=== PATIENT | female | born 1980 | race Caucasian/White ===

== ENCOUNTER 2016-10-17 12:12 | Emergency (ER) | payer OTHER ==
[~2016-10-17] VITALS: Ht 154.9 cm; Wt 61.8 kg
[2016-10-17] MEDS ORDERED: 0.9% Sodium Chloride 1,000 ML IV ONE (12:15)
[2016-10-17 12:16] VITALS: BP 102/62; PULSE 65; RESP 15; O2SAT 99
[2016-10-17 12:30] LABS: BASOPHILS % (AUTO) 0.3 % (0-3); MONOCYTES % (AUTO) 9.6 % (4-12); Mean Corpuscular Hemoglobin 29.6 pg (27.0-35.0); Mean Corpuscular Volume 87.9 fL (81-100); NEUTROPHILS % (AUTO) 63.7 % (40-74); Platelet Count 249 bil/L (150-400)
--- NOTE | 2016-10-17 13:02 | DRSVH ---
PROCEDURE: X-RAY CHEST, TWO VIEWS ([id number]) INDICATIONS: chest pain, dyspnea TECHNIQUE: 2 views of the chest were acquired. COMPARISON: None. FINDINGS: Surgical changes and devices: None. Lungs and pleura: No pleural effusions or pneumothorax. Lungs are clear. Mediastinum: Mediastinal contours are normal. Heart size is normal. Bones and chest wall: No suspicious bony abnormalities. Soft tissues appear unremarkable. IMPRESSION: 1. No acute cardiopulmonary disease. Dictated by: Nma Cox M.D. on 10/17/2016 at 13:00 Approved by: Nam Cox M.D. on 10/17/2016 at 13:00
[2016-10-17 13:13] VITALS: BP 93/61; PULSE 65; RESP 16; O2SAT 100
[2016-10-17 13:14] LABS: TROPONIN T < 0.010 ug/L (0.0-0.011)
[2016-10-17 13:30] LABS: APPEARANCE,URINE HAZY (CLEAR,HAZY); COLOR,URINE STRAW (YELLOW)
[2016-10-17 13:31] LABS: OCCULT BLOOD,URINE NEGATIVE (NEGATIVE); PH,URINE 7.5 (5.0-8.0); UROBILINOGEN,URINE NORMAL (NORMAL)
--- NOTE | 2016-10-17 14:24 | ED.REPORT ---
HPI-General Illness Date of Service Oct 17, 2016 ED Provider: Jayden Lynn MD A 36 year old female with a history of diabetes on insulin pump and sinus surgery on 09/12/2016 is brought to the ED from the [facility] via EMS due to intermittent chest pain. The pain is described as "sharp" and concentrated on the left side of her chest, radiating into her left shoulder. The pt was seen in the clinic to address possible UTI symptoms including vaginal discharge, dysuria and urinary frequency, and mentioned that she has been experiencing this chest pain for one week. This was accompanied by a cough and shortness of breath when she laid flat today. She was given nitro, aspirin and fentanyl en route, which relieved her pain somewhat from an 8/10 to her current pain of 6/ 10. The pt is concerned that she may have an infection from her recent surgery or have heartburn. The pt has treated her pain with Tylenol and Tums. She is not taking hormonal therapy or contraceptives. The pt denies lower extremity edema or hemoptysis. No other acute complaints at this time. She says that she' s been getting treated for her vaginal discharge, thought to be a 'yeast infection' and not different today. No recent hx of fever, chills, nausea, vomiting, unilateral weakness, palpitations, vision changes, or other pertinent complaints at this time. Nursing Notes Stated Complaint: CHEST PAIN Chief Complaint: Chest Pain Nursing Notes Reviewed: Yes Allergies: Coded Allergies: No Known Allergies (Verified , 07/26/03) Scheduled Ciprofloxacin (Cipro) 250 Mg Tablet 250 MG PO TID General Time Seen by MD: 12:15 Chief Complaint Chest pain Hx Obtained From: Patient, EMS Arrived By: Ambulance Sudden in Onset?: No Onset Occurred: 1 week ago Symptom Duration: Since onset Location: : Chest Quality: Sharp Radiation: : Shoulder (left) Severity: Current: Pain level 6 out of 10 Severity: Maximum: Pain level 8 out of 10 Recent Healthcare: No recent hospitalization, Recent doctor visit Similar Sx Previous: No Past Medical History Past Medical History Reports: Diabetes mellitus Past Surgical History thyroglossal duct cyst sinus surgery Family History MA (father at 50 and grandmother) Smoking History Never Smoker Social History Other Social History: Good social support Ambulatory Status Independent Review of Systems denies lower extremity edema denies hemoptysis Full Review of Systems Constitutional: Denies: Fever Eyes: Denies: Diplopia Ears / Nose / Throat: Denies: Mouth pain, Nasal congestion, Voice change Respiratory: Reports: Non-productive cough, Shortness of breath Cardiovascular: Reports: Chest pain GI: Reports: Abdominal pain (lower, over her bladder), Denies: Vomiting Musculoskeletal: Denies: Back pain, Neck pain Hematologic: Denies Bruising Endocrine: Denies: Cold intolerance, Heat intolerance Skin: Denies Rash Allergy / Immune: Denies: Sneezing Neurologic: Denies: Change LOC, Confusion, Headache, Seizure Complete sys rev & neg: except as marked. Physical Exam Constitutional: Well-developed, well-nourished. Not diaphoretic. Head: Normocephalic and atraumatic. Mouth/Throat: Oropharynx is clear and moist. No oropharyngeal exudate. Eyes: EOM are normal. Pupils are equal, round, and reactive to light. Neck: Supple, no tracheal deviation. Cardiovascular: Normal rate, regular rhythm. Equal and intact distal pulses throughout. No murmurs, rubs, or gallops. Pulmonary/Chest: Effort normal and breath sounds normal. No respiratory distress. Marked reproducible chest wall tenderness on the left that she states is the pain she's been having and concerned about. Abdominal: Soft. No distension. Mild suprapubic tenderness, but otherwise no tenderness, rebound, or guarding. Bowel sounds present. Musculoskeletal: Range of motion grossly intact, moving all extremities. No edema or tenderness appreciated. Neurological: AOx3. Grossly nonfocal exam. Strength and sensation intact and equal to bilateral upper and lower extremities. Skin: Warm and dry, no rashes or pallor appreciated. Psychiatric: Appropriate mood and affect. Behavior appears normal. Vital Signs Vital Signs Date Time Temp Pulse Resp B/P Pulse Ox O2 Delivery O2 Flow Rate FiO2 10/17/16 18:44 36.6 78 16 107/46 99 Room Air 10/17/16 18:43 78 16 107/46 99 Room Air 10/17/16 15:41 77 22 98/58 99 Room Air 10/17/16 13:13 65 16 93/61 100 10/17/16 12:16 36.6 65 15 102/62 99 Room Air Initial VS: Reviewed Interpretation & Diagnostics Lab Results Interpretation Result Diagram: 10/17/16 1221 10/17/16 1221 Test 10/17/16 12:21 10/17/16 12:45 White Blood Count 6.8th/mm3 (3.8-10.1) Red Blood Count 4.06mil/mm3 (3.90-5.20) Hemoglobin 12.0g/dL (12.0-15.6) Hematocrit 35.7% (35.0-46.0) Mean Corpuscular Volume 87.9fL (81-100) Mean Corpuscular Hemoglobin 29.6pg (27.0-35.0) Mean Corpuscular Hemoglobin Concent 33.6% (32.0-37.0) Red Cell Distribution Width 13.0% (12.3-15.4) Platelet Count 249bil/L (150-400) Neutrophils (%) (Auto) 63.7% (40-74) Lymphocytes (%) (Auto) 25.3% (14-46) Monocytes (%) (Auto) 9.6% (4-12) Eosinophils (%) (Auto) 1.0% (0-5) Basophils (%) (Auto) 0.3% (0-3) Prothrombin Time 10.7sec (8.1-12.5) Prothromb Time International Ratio 1.00ratio Sodium Level 138mEq/L (134-144) Potassium Level 3.9mEq/L (3.5-5.2) Chloride Level 102mEq/L (97-108) Carbon Dioxide Level 23mmol/L (18-29) Blood Urea Nitrogen 13mg/dL (6-20) Creatinine 0.58mg/dL (0.57-1.00) Estimat Glomerular Filtration Rate 168mL/min (>59) Glucose Level 160mg/dL (60-99) Calcium Level 9.2mg/dL (8.5-10.1) Magnesium Level 2.0mg/dL (1.6-2.6) Total Bilirubin 1.2mg/dL (0.0-1.2) Aspartate Amino Transf (AST/SGOT) 21U/L (0-50) Alanine Aminotransferase (ALT/SGPT) 12U/L (0-32) Alkaline Phosphatase 50U/L (25-150) Troponin T < 0.010ug/L (0.0-0.011) Total Protein 7.7g/dL (6.4-8.4) Albumin 4.1g/dL (3.4-5.0) Urine Color Straw (YELLOW) Urine Appearance Hazy (CLEAR,HAZY) Urine pH 7.5 (5.0-8.0) Urine Specific [place] 1.010 (1.003-1.035) Urine Protein Negativemg/dL (NEG,TRACE) Urine Glucose (UA) Negativemg/dL (NEGATIVE) Urine Ketones Negativemg/dL (NEGATIVE) Urine Occult Blood Negative (NEGATIVE) Urine Nitrite Negative (NEGATIVE) Urine Bilirubin Negative (NEGATIVE) Urine Urobilinogen Normalmg/dL (NORMAL) Urine Leukocyte Esterase Small (NEGATIVE) Urine RBC 0-2/hpf (0-2) Urine WBC 0-5/hpf (0-5) Urine Epithelial Cells Occasional/hpf (NONE-MOD) Urine Crystals None seen (NONE SEEN) Urine Bacteria Few/hpf (NONE-FEW) Urine Hyaline Casts None/lpf (NONE) Urine Granular Casts None seen (NONE SEEN) Urine Waxy Casts None seen (NONE SEEN) Urine Red Blood Cell Casts None seen (NONE SEEN) Urine White Blood Cell Casts None seen (NONE SEEN) Urine Mucus None seen (None Seen) Urine Trichomonas None seen (NONE SEEN) Urine Yeast None (NONE SEEN) Urinalysis Comment None Urine Culture Reflexed Indicated ECG Interpretation ECG Interpretation: normal sinus rhythm with a rate of 69 low voltage, precordial leads Time: 12:29 Interpreted by: ED physician X-Ray Chest Interpretation Chest Xray Interpretation: IMPRESSION: 1. No acute cardiopulmonary disease. Dictated by: Nam Cox M.D. on 10/17/2016 at 13:00 Approved by: Nam Cox M.D. on 10/17/2016 at 13:00 Interpretation / Wet Read by: Interpret - Radiologist Re-Eval/Medical Decision Med Decision/Clinical Course In summary, 36-year-old female presenting to the ED for evaluation of a number of different complaints, most notably left-sided chest pain over the past week. Differential is broad and includes ACS, PE, aortic dissection, cardiac tamponade, pneumothorax. ACS seems unlikely; HEART score of 1 (hx of DM and family hx of CAD), but not all that consistent with her story and has clearly reproducible pain on exam. EKG demonstrates sinus rhythm with no acute ischemic changes appreciated. Doubt PE given the patient is PERC negative and very low clinical suspicion. Aortic dissection seems unlikely given the reproducible pain, pain not described as tearing through to her back, normal neurologic exam, no wide mediastinum on chest x-ray. No muffled heart sounds or JVD. Her EKG does not demonstrate any VT depression or diffuse ST elevation that would suggest myocarditis/pericarditis. No evidence of pneumothorax on x- ray or exam. Vital signs here in the ED also grossly within normal limits; blood pressures were on the lower side upon arrival, however had received nitroglycerin and fentanyl just prior. No lightheadedness. Not tachycardic. Laboratory results reviewed, notable for a white blood cell count of 6.8 with no left shift, coags, CMP and CBC grossly within normal limits. Urinalysis demonstrates a small amount of leukocyte esterase, however no white blood cells and only a few bacteria. She has been previously told that she has a urinary tract infection and is experiencing some dysuria and suprapubic tenderness; told that she would receive treatment for this here today previously. I will start her on a three-day course of Cipro, however discussed that she will need to discuss this with her primary doctor as I know that this has been something that she has been battling regularly and there was some thought that this may be continuing to her yeast infection. Chest x-ray negative for any acute abnormality. There was some concern that she had voiced to me, and had previously been discussed by me with her PA prior to her arrival about a possible systemic infection related to the surgery that she had over a month ago and the pain she is having. She has no leukocytosis, no fever or history of fever, no left shift , no murmurs on exam, no history of IV drug abuse, not immunocompromised, and clearly reproducible chest pain that she states is the same pain she has been having previously. I discussed the lack of risk factors for endocarditis with the patient at length, as well as with her PA on the phone prior to her sending the patient to the ED. Given the above, I explained that I do not think that she needs admission for a formal transthoracic or transesophageal echocardiogram and broad-spectrum antibiotics. I did do a brief, focused bedside echocardiogram and saw no signs of pericardial effusion or obvious vegetations, however I explained that I did not think I would be able to see vegetations there even if present. We discussed performing a formal echo but the patient expressed a desire to leave. She had received toradol and a gi cocktail with marked improvement in symptoms, even moreso that with the fentanyl. Given the reassuring findings above, it seems reasonable to discharge her home with very careful return precautions, PCP follow-up tomorrow. She verbalized agreement with this plan, no further questions. Time of Eval: 18:11 Patient Status: Condition improved Re-Evaluation/Progress Note: Pt rechecked and bedside echocardiogram is performed without complication. The diagnosis and plan for discharge are discussed. The pt understands and agrees with the plan. All questions are addressed at this time. Counseled Regarding: Diagnosis, Lab results, Need for follow-up, When/why to return to ED Discharge & Departure Primary Impression: Chest wall pain Additional Impressions: Dyspnea Dyspnea type: unspecified Qualified Code: R06.00 - Dyspnea, unspecified Chest pain Chest pain type: unspecified Qualified Code: R07.9 - Chest pain, unspecified Urinary tract infection Urinary tract infection type: site unspecified Hematuria presence: without hematuria Qualified Code: N39.0 - Urinary tract infection, site not specified Disposition: Home Discharge Condition All VS Reviewed: Yes Condition: Improved Patient Instructions: Chest Pain (ED), Costochondritis (ED), Shortness of Breath (ED) Additional Instructions: Thank you for allowing us to be a part of your care today. As we discussed, I think the likelihoood of you having a systemic (whole body) infection such as those that would lead to an infection of your heart is low at this point in time. Your lab work was reassuring, as were your vital signs. However, also as discussed, I cannot completely rule out that you are in the very early stages of an infection at this time. You need to watch for signs of fever, tachycardia (fast heart rate), changes in your pain, malaise, or if there is anything else of concern to you. In addition, we talked about the causes of chest pain and shortness of breath. Your family history of heart disease puts you at an increased risk of heart disease, and you should discuss a stress test with your regular doctor. Your EKG and blood work for this today was also reassuring. The fact that you're having the same pain you're describing when your chest is pressed on suggests a likely musculoskeletal cause for that pain, but again watch for worsening pain, a change in the character of your pain, weakness, headache, or anything else of concern to you. Call your primary care physician tomorrow to arrange a follow up appointment. Return to the emergency department if you develop any new or worsening symptoms including a marked change in your symptoms such as worsening chest pain, fever, vomiting, shortness of breath, or if there's anything else of concern to you. Referrals: Michelle Anderson MD (PCP) Scribe Attestation Portions of this note were transcribed by Bernard Teixeira. I, Dr. Lynn personally performed the history, physical exam and medical decision-making; I reviewed and confirmed the accuracy of the information in the transcribed note. copies to: Michelle Anderson MD Risk Factors PERC Rule PERC Result: All PERC criteria "No", PERC rule satisfied Jayden Lynn MD Oct 17, 2016 14:23 BERNARD TEIXEIRA Oct 17, 2016 14:26
[2016-10-17 15:41] VITALS: BP 98/58; PULSE 77; RESP 22; O2SAT 99
[2016-10-17] MEDS: LidocaineVisc 2%:Antacid 1:1 10 mL Syringe PO SCH ×2 (17:59→18:03)
[2016-10-17] MEDS ORDERED: CIPR-232 PO (18:36)
[2016-10-17 18:43] VITALS: BP 107/46; PULSE 78; RESP 16; O2SAT 99
[2016-10-17 18:44] VITALS: BP 107/46; PULSE 78; RESP 16; O2SAT 99
== END 2016-10-17 18:46 | disposition home or self-care (01) ==
LOC: SED 12:12
DX: R07.89 Other chest pain (principal); R06.00 Dyspnea, unspecified; N39.0 Urinary tract infection, site not specified; E11.9 Type 2 diabetes mellitus without complications; Z79.4 Long term (current) use of insulin
CPT/HCPCS: 36415; 71020; 80053; 81000; 81025; 83735; 84484; 85025; 85610; 87086; 87088; 93005; 96361; 96374; 99285; J1885; J7030

== ENCOUNTER 2016-10-25 22:44 | Observation (INO) | payer OTHER ==
[~2016-10-25] VITALS: Ht 154.9 cm; Wt 63.2 kg
[~2016-10-25 22:44] MED LIST: CIPR-232 PO
[2016-10-26] VITALS (11 sets, daily range): BP systolic 90–119; BP diastolic 52–77; PULSE 60–95; RESP 16–20; O2SAT 92–100
[2016-10-26] MEDS ORDERED: Pepcid PO (02:28)
[2016-10-26] MEDS ORDERED: Humalog SUBQ (02:28)
[2016-10-26] MEDS ORDERED: Polyethylene Glycol (PEG) 17 Gm Powder PO PRN (03:15)
[2016-10-26] MEDS ORDERED: Ondansetron 2 mg/mL 2 mL Inj IVPUSH PRN (03:15)
[2016-10-26] MEDS ORDERED: Alum-Mag Hydrox-Simeth 30 mL Suspension PO PRN (03:15)
[2016-10-26 05:22] LABS: BASOPHILS % (AUTO) 0.4 % (0-3); EOSINOPHILS % (AUTO) 2.3 % (0-5); Mean Corpuscular Hemoglobin 29.1 pg (27.0-35.0); Mean Corpuscular Volume 87.8 fL (81-100); NEUTROPHILS % (AUTO) 46.8 % (40-74); Platelet Count 223 bil/L (150-400)
--- NOTE | 2016-10-26 05:36 | PCM.HPMED ---
Subjective Date of Service Oct 26, 2016 Primary Provider: Admitting Physician: Sheila Britton DO Primary Care Physician: Michelle Anderson MD Attending Physician: Sheila Britton DO Admit Status: Direct Admit (From [facility]) Chief Complaint: Shortness of Breath History of Present Illness: Payton Rojas is a 36-year-old female with a past medical history of type 1 diabetes with insulin pump and recent sinus surgery who is a direct from [facility] with worsening shortness of breath. She says that since her dental procedure to correct for a hole in her sinus and infected tooth in late August, she has had decreased energy, felt tired, and short of breath constantly. She feels as though she is never able to get enough air. Her recovery from her procedure was complicated by an infection for which she required 3 rounds of antibiotics, which she cannot recall the names of. Since about two weeks ago, her shortness of breath has progressively become worse to the point where she even feels short of breath while talking. Around the same time, she also began to have chest pain that is worse when laying down. She also began to have heart palpitations that worsen with activity and a non-productive cough. Since yesterday, she had chills and had a temperature of 99.2 at urgent care today. On her visit with her PCP yesterday, her temperature was 99.2F. She says that she began to feel nauseous today. She denies vomiting, sore throat, tender lymphadenopathy. She has tried ibuprofen and Pepcid for her chest pain, but they have not helped. She denies abdominal pain, constipation, diarrhea, recent skin infections, or rashes. She had a recent urinary tract infection, with dysuria and urinary frequency, and completed a 3-day course of antibiotics on . These symptoms have since resolved. Per [facility] notes from 10/25/16, during a 75 meter walk in their ED, she had 2 episodes of hypoxia, once in the low 60s and once in the 70s. During this time, the patient complained of lightheadedness, air hunger, and burning sensation in her calves as if Im hiking. The patient reports that she normally has excellent exercise tolerance. In the ED at [facility], she was afebrile and had stable vital signs. Her oxygen saturation was 95% on room air. Initial labs from [facility] ED showed hypokalemia 3.1, hypoglycemia 58. Other labs were sodium 138, chloride 104, BUN/ creatinine 11/0.82, calcium 9.0. She had negative troponins x2, d-dimer, BNP, and normal lactate of 1.9. Her WBC count was 8.2, RBC 3.84, hgb/hct was 11.5/ 33.4, platelets 277. Her B-hCG was negative. Her urinalysis did not show signs of infection, but had glucose 100 mg/dL and 3-5 RBC/hpf. A chest CT angiogram showed no evidence of pulmonary embolism and a chest x-ray showed no radiographic abnormalities of the chest. It should be noted that she had several episodes of hypoglycemia with blood sugars of 44 and 58 also seen at [facility] with no time reported. [facility] was unable to do an echocardiogram over the weekend and so spoke with cardiology here at [facility] and requested a transfer to resume further care. Review of Systems: A comprehensive review of systems was conducted with the patient and found to be negative except as above in the History of Present Illness. Allergies Coded Allergies: No Known Allergies (Verified , 07/26/03) Home Medications Insulin Pump PMH Diabetes Type 1 Surgical History Thyroglossal duct cyst Sinus Surgery Family History Father: from Heart attack age 50 Brother: Diabetes, HTN Grandmother: Heart disease Social History Occupation: Teacher Hx Alcohol Use: No Hx Substance Use: No Hx Tobacco Use: No Smoking Status: Never Smoker Exam Vital Signs Vital Sign - Last Date Time Temp Pulse Resp B/P Pulse Ox O2 Delivery O2 Flow Rate FiO2 10/26/16 01:37 36.6 60 18 107/64 95 Room Air Exam General: No acute distress, well-developed, well-nourished, appropriately interactive HEENT: Normocephalic, atraumatic. External ears without defect. Pupils equal, round, and reactive to light and accommodation. Anicteric sclerae. Neck: Supple with full range of motion. No lymphadenopathy or thyromegaly. Cardiovascular: Regular rate and rhythm with no murmurs, rubs, or gallops appreciated Pulmonary: Clear to auscultation bilaterally with no crackles, wheezes, or rhonchi. Normal respiratory effort with no use of accessory muscles. Abdomen: Bowel tones present. Soft, nontender, nondistended. No hepatosplenomegaly or masses appreciated. Insulin pump RLQ. Extremities: No clubbing, cyanosis, edema, or lymphadenopathy appreciated. Skin: Normal temperature, turgor, and texture; no rash, ulcers, or subcutaneous nodules appreciated. Neurological: Cranial nerves grossly intact. Normal muscle strength, tone, and bulk. Reflexes, coordination, and sensory function within normal limits. No known gait impairment. Psychiatric: Normal mood and affect. Alert and oriented to person, place, and time. Lab and Diagnostics Labs Item Value Date Time White Blood Count 5.3 th/mm3 10/26/16 0510 Red Blood Count 3.44 mil/mm3 L 10/26/16 0510 Hemoglobin 10.0 g/dL L 10/26/16 0510 Hematocrit 30.2 % L 10/26/16 0510 Mean Corpuscular Volume 87.8 fL 10/26/16 0510 X-Rays, CTs and MRIs CT pulmonary angiogram PULMONARY ARTERIES: Well opacified with contrast without any filling defects. THORACIC AORTA: No dissection or aneurysm. LUNGS: Normal. MEDIASTINUM: Normal. HEART: Normal. PLEURA: Normal. SKELETON, CHEST WALL: Normal for age. ABDOMEN: Limited views are normal. OTHER: No significant findings. IMPRESSION: No pulmonary embolus or acute changes. Negative exam. Gerber Aiken MD 10/25/2016 8:23 PM XR CHEST 2V AP/PA and LAT FINDINGS: The lungs are well expanded. No infiltrates or pulmonary masses are seen. No pleural fluid or pleural thickening or pneumothorax is identified. The heart, hilar structures, mediastinum, pulmonary vasculature and osseous structures appear within normal limits. IMPRESSSION: No radiologic abnormalities of the chest. Gerber Aiken MD 10/25/2016 6:27 PM 12-lead ECG Normal Sinus Rhythm Assessment & Plan Payton Rojas is a 36-year-old female with a past medical history of type 1 diabetes with insulin pump and recent sinus surgery who is a direct from [facility] with worsening shortness of breath. Acute Hypoxic Respiratory Failure, Present on Admission, Active Patient had desat into 60's and 70's during 75 meter walk at [facility]. - Monitor O2 - Monitor Telemetry - ECHO with bubble study - PFT/Spirometry - Consider the following tests; Alpha-1 antitrypsin, carboxyhemoglobin, methemoglobin Normocytic anemia, unknown chronicity -continue to monitor Diabetes Type 1, Present on Admission, Active - Patient had hypoglycemic episodes while at [facility] into the 40's and one reading of 45 here at [facility]. She reports not eating since this morning. - Patient with insulin pump. Continue management. - Monitor glucose q4 hours - hgbA1c added onto admitting labs Patient Status: Patient is admitted under inpatient status with expected length of stay greater than 2 midnights due to severity of presenting symptoms, risk of adverse event, and complexity of treatment plan. Code Status: Full Code VTE Prophylaxis: Sub-Q Heparin (Unfractionated) VTE Mechanical Devices: Intermittant Pneumatic CD Resuscitation Status: CPR: Attempt Resuscitation Attending Statement The patient was seen and examined together with house staff on 10/26/2016 and I agree with the history, exam and plan as outlined in the note above. Calvin Lin DO Oct 26, 2016 03:19 JESSICA GASCA MD Oct 26, 2016 04:30 Sheila Britton DO Oct 26, 2016 06:40
--- NOTE | 2016-10-26 05:40 | NUR ---
Admit Pt arrived to [facility] room 2027 from [facility] at approx. 0120 via transport; all belongings transferred with patient. Admit documentation and med rec completed; insulin pump with patient at baseline dose of 0.825 units per hour of Humalog. MD consulted, stated patient is allowed to keep and maintain her insulin pump during hospital stay. Pt denies pain, reports nausea at present, and endorses dizziness, lightheadedness, dyspnea, and palpitations on ambulation. Bedrest since arrival. CPOX in room per MD order, SpO2 99-100% while at rest on RA. Advance directive information offered to patient. Admit BG of 45; apple juice and crackers administered with a BG reassessment of 150. MD aware. Tele SB/SR 50s-70s. VSS.
[2016-10-26] MEDS ORDERED: INSULIN PUMP SUBQ SCH (05:45)
[2016-10-26 05:46] LABS: Magnesium 2.1 mg/dL (1.6-2.6)
[2016-10-26] MEDS: Heparin 5,000 Unit/mL Inj SUBQ SCH ×2 (09:14→16:30)
--- NOTE | 2016-10-26 13:26 | NUR ---
Resp Eval Patient RA sat 100% at rest. Patient amb approx 3/4 of full lap of hallway RA sat 99%. The last 1/4 of the vences patient sats dropped to 74% with amb and talking. Patient c/o BLE calf burning during end of ambulation. Dr Pelaez notified of results.
--- NOTE | 2016-10-26 15:25 | PCM.PNMED ---
Subjective Date of Service Oct 26, 2016 Subjective She is comfortable in bed in slight vague chest pain which increases with deep breathing. She denies a cough, fevers or chills. She has one dog at home. She has had symptoms of palpitations with exertion and dyspnea with exertion for about 1 week. She went to [facility] emergency department and had a CT angiogram of the chest which was unremarkable for infiltrate, pulmonary embolism, or any other obvious abnormality. An EKG was also fairly unremarkable, sinus rhythm. She denies history of cardiac or pulmonary disease. No other interval events. Exam Vital Signs Vital Sign - Last Date Time Temp Pulse Resp B/P Pulse Ox O2 Delivery O2 Flow Rate FiO2 10/26/16 11:56 37.2 73 18 90/52 98 Room Air Intake and Output 10/25/16 10/25/16 10/26/16 Cumulative From/Thru 15:00 23:00 07:00 10/26/16 01:30 - 10/26/16 06:27 Intake Total 400 ml 400 ml Output Total 20 ml 20 ml Balance 380 ml 380 ml Intake Oral 400 ml 400 ml Output Urine Total 20 ml 20 ml Exam Alert and oriented -3, no distress. Fluent speech Anicteric sclera. Lungs are clear with normal rate and effort, globally diminished breath sounds but no obvious wheezing. Heart is regular without murmur gallop or rub Abdomen soft nontender, flat Extremities are free of edema. Skin is free of rash or lesions. IVs and Medications Medications Reviewed: Medications were reviewed in detail Lab and Diagnostics Result Diagram: 10/26/16 0510 10/26/16 0510 X-Rays, CTs and MRIs CT pulmonary angiogram PULMONARY ARTERIES: Well opacified with contrast without any filling defects. THORACIC AORTA: No dissection or aneurysm. LUNGS: Normal. MEDIASTINUM: Normal. HEART: Normal. PLEURA: Normal. SKELETON, CHEST WALL: Normal for age. ABDOMEN: Limited views are normal. OTHER: No significant findings. IMPRESSION: No pulmonary embolus or acute changes. Negative exam. Gerber Aiken MD 10/25/2016 8:23 PM XR CHEST 2V AP/PA and LAT FINDINGS: The lungs are well expanded. No infiltrates or pulmonary masses are seen. No pleural fluid or pleural thickening or pneumothorax is identified. The heart, hilar structures, mediastinum, pulmonary vasculature and osseous structures appear within normal limits. IMPRESSSION: No radiologic abnormalities of the chest. Gerber Aiken MD 10/25/2016 6:27 PM 12-lead ECG Normal Sinus Rhythm Assessment & Plan Payton Rojas is a 36-year-old female with a past medical history of type 1 diabetes with insulin pump and recent sinus surgery who is a direct from [facility] with worsening shortness of breath. Acute Hypoxic Respiratory Failure with exertion, Present on Admission, Active Patient had desat into 60's and 70's during 75 meter walk at [facility]. The patient had reproducible desaturations here again was symptomatic. Her resting EKG is normal. CT pulmonary angiogram was obtained and the report indicates no evidence of year where space disease or pulmonary embolism. I discussed consultation with Dr. Martin and will order a high resolution CAT scan to rule out parenchymal disease and maybe causing a fixed defusion defect. Normocytic anemia, unknown chronicity and stable. -continue to monitor, clinically Diabetes Type 1, Present on Admission, Active and uncontrolled for the first several hours of admission. Improving. - Patient had hypoglycemic episodes while at [facility] into the 40's and one reading of 45 here at [facility]. She reports not eating since this morning. - Patient with insulin pump. Continue management. - Monitor glucose q4 hours - hgbA1c added onto admitting labs Patient Status: Patient is admitted observation status with expected length of stay greater than 2 midnights due to severity of presenting symptoms, risk of adverse event, and complexity of treatment plan. Code Status: Full Code Old records from [facility] reviewed Chest x-ray, EKG, laboratories, and CT angiogram from the [facility] reviewed. Case was discussed with Dr. Martin, pulmonary wardrobe consultant will be seen the patient. Decision to order high resolution CT of the chest made. VTE Prophylaxis: Sub-Q Heparin (Unfractionated) VTE Mechanical Devices: Intermittant Pneumatic CD Resuscitation Status: CPR: Attempt Resuscitation Danie Pelaez MD Oct 26, 2016 15:25
--- NOTE | 2016-10-26 16:22 | NUR ---
WALKED PATIENT WITH DR BELTRÁN USED POTABLE PULSE OXIMETER TO MONITOR PATIENT ON ROOM AIR 3 TIME AROUND FLOOR 400 FT PER LAP STOPPED EACH TIME AROUND CHECKED SATS 99% , 100% AND 100% HEART RATE STAYED BETWEEN 85 AND 95 BPM NO SOB.
--- NOTE | 2016-10-26 16:45 | PCM.DIMED ---
Discharge Instructions Date of Service Oct 26, 2016 Dates of Hospitalization Oct 26, 2016 at 01:23 Discharge Diagnosis Discharge Diagnosis Dyspnea with exertion, unclear cause. Anemia, mild. Diabetes Type 1, stable. Diet Discharge Diet: No restrictions Activity Discharge Activity: No restrictions Patient Instructions Follow-up Provider: Michelle Anderson MD Follow-up with PCP in: 2 weeks Danie Pelaez MD Oct 26, 2016 16:45
--- NOTE | 2016-10-26 16:53 | PCM.DC.MED ---
Discharge Summary Date of Service Oct 26, 2016 Dates of Hospitalization Date of Hospital Admission Oct 26, 2016 at 01:23 Date of Discharge: Oct 26, 2016 Providers: Admitting Physician: Sheila Britton DO Primary Care Physician: Michelle Anderson MD Attending Physician: Danie Pelaez MD Diagnosis at Time of Discharge Diagnosis at Time of Discharge Dyspnea with exertion, unclear cause. Anemia, mild. Diabetes Type 1, stable. Consultations Dr. Martin, pulmonary Procedures XRay, CTs & MRIs CT pulmonary angiogram PULMONARY ARTERIES: Well opacified with contrast without any filling defects. THORACIC AORTA: No dissection or aneurysm. LUNGS: Normal. MEDIASTINUM: Normal. HEART: Normal. PLEURA: Normal. SKELETON, CHEST WALL: Normal for age. ABDOMEN: Limited views are normal. OTHER: No significant findings. IMPRESSION: No pulmonary embolus or acute changes. Negative exam. Gerber Aiken MD 10/25/2016 8:23 PM XR CHEST 2V AP/PA and LAT FINDINGS: The lungs are well expanded. No infiltrates or pulmonary masses are seen. No pleural fluid or pleural thickening or pneumothorax is identified. The heart, hilar structures, mediastinum, pulmonary vasculature and osseous structures appear within normal limits. IMPRESSSION: No radiologic abnormalities of the chest. Gerber Aiken MD 10/25/2016 6:27 PM ECG 12 Lead Normal Sinus Rhythm Cardiac Echo Impression normal echo Invasive Procedures None Other Diagnostics CT pulmonary angiogram was reviewed from Gen.: Revealed normal vasculature, no embolism, no obvious parenchymal disease. Brief History Payton Rojas is a 36-year-old female with a past medical history of type 1 diabetes with insulin pump and recent sinus surgery who is a direct [place] [facility] with worsening shortness of breath. She says that since her dental procedure to correct for a hole in her sinus and infected tooth in late August, she has had decreased energy, felt tired, and short of breath constantly. She feels as though she is never able to get enough air. Her recovery from her procedure was complicated by an infection for which she required 3 rounds of antibiotics, which she cannot recall the names of. Since about two weeks ago, her shortness of breath has progressively become worse to the point where she even feels short of breath while talking. Around the same time, she also began to have chest pain that is worse when laying down. She also began to have heart palpitations that worsen with activity and a non-productive cough. Since yesterday, she had chills and had a temperature of 99.2 at urgent care today. On her visit with her PCP yesterday, her temperature was 99.2F. She says that she began to feel nauseous today. She denies vomiting, sore throat, tender lymphadenopathy. She has tried ibuprofen and Pepcid for her chest pain, but they have not helped. She denies abdominal pain, constipation, diarrhea, recent skin infections, or rashes. She had a recent urinary tract infection, with dysuria and urinary frequency, and completed a 3-day course of antibiotics on . These symptoms have since resolved. Per [facility] notes from 10/25/16, during a 75 meter walk in their ED, she had 2 episodes of hypoxia, once in the low 60s and once in the 70s. During this time, the patient complained of lightheadedness, air hunger, and burning sensation in her calves as if Im hiking. The patient reports that she normally has excellent exercise tolerance. In the ED at [facility], she was afebrile and had stable vital signs. Her oxygen saturation was 95% on room air. Initial labs from [facility] ED showed hypokalemia 3.1, hypoglycemia 58. Other labs were sodium 138, chloride 104, BUN/ creatinine 11/0.82, calcium 9.0. She had negative troponins x2, d-dimer, BNP, and normal lactate of 1.9. Her WBC count was 8.2, RBC 3.84, hgb/hct was 11.5/ 33.4, platelets 277. Her B-hCG was negative. Her urinalysis did not show signs of infection, but had glucose 100 mg/dL and 3-5 RBC/hpf. A chest CT angiogram showed no evidence of pulmonary embolism and a chest x-ray showed no radiographic abnormalities of the chest. It should be noted that she had several episodes of hypoglycemia with blood sugars of 44 and 58 also seen at [facility] with no time reported. [facility] was unable to do an echocardiogram over the weekend and so spoke with cardiology here at [facility] and requested a transfer to resume further care. Hospital Course Payton Rojas is a 36-year-old female with a past medical history of type 1 diabetes with insulin pump and recent sinus surgery who is a direct from [facility] with worsening shortness of breath. Acute Hypoxic Respiratory Failure with exertion, Present on Admission, Active Patient had desat into 60's and 70's during 75 meter walk at [facility]. The patient had reproducible desaturations here again was symptomatic. Her resting EKG is normal. CT pulmonary angiogram was obtained and the report indicates no evidence of year where space disease or pulmonary embolism. I discussed consultation with Dr. Martin and will order a high resolution CAT scan to rule out parenchymal disease and maybe causing a fixed defusion defect. Normocytic anemia, unknown chronicity and stable. -continue to monitor, clinically Diabetes Type 1, Present on Admission, Active and uncontrolled for the first several hours of admission. Improving. - Patient had hypoglycemic episodes while at [facility] into the 40's and one reading of 45 here at [facility]. She reports not eating since this morning. - Patient with insulin pump. Continue management. - Monitor glucose q4 hours - hgbA1c added onto admitting labs Patient Status: Patient is admitted observation status with expected length of stay greater than 2 midnights due to severity of presenting symptoms, risk of adverse event, and complexity of treatment plan. Code Status: Full Code Old records from [facility] reviewed Chest x-ray, EKG, laboratories, and CT angiogram from the [facility] reviewed. Case was discussed with Dr. Martin, pulmonary solar energy consultant and designer will be seen the patient. Decision to order high resolution CT of the chest made. Hospital course. The patient was taken around labs in the hospital with an oximeter and did desaturate towards the end of her walk with the nurse. This is repeated with respiratory therapy and Dr. Martin and she is able to walk 3 complete laps around the vitale with no desaturation or other symptoms. Telemetry is reviewed there is no arrhythmia. Imaging and EKG were also reviewed. The patient was felt to have no evidence of acute cardiopulmonary disease or verifiable desaturations. At this point she is reassured. She does not refer a lot of stress going to a sister who is moving out of area as well as the eminent 7 and the next several days. She will follow up with Dr. Anderson within the next week. No change to her medications. Exam Vital Signs (Last) Date Time Temp Pulse Resp B/P Pulse Ox O2 Delivery O2 Flow Rate FiO2 10/26/16 16:19 36.7 67 18 90/55 100 Room Air Exam Patient was seen and examined on the day of discharge Test 10/26/16 05:10 10/26/16 05:15 White Blood Count 5.3th/mm3 (3.8-10.1) Red Blood Count 3.44mil/mm3 (3.90-5.20) Hemoglobin 10.0g/dL (12.0-15.6) Hematocrit 30.2% (35.0-46.0) Mean Corpuscular Volume 87.8fL (81-100) Mean Corpuscular Hemoglobin 29.1pg (27.0-35.0) Mean Corpuscular Hemoglobin Concent 33.1% (32.0-37.0) Red Cell Distribution Width 13.2% (12.3-15.4) Platelet Count 223bil/L (150-400) Neutrophils (%) (Auto) 46.8% (40-74) Lymphocytes (%) (Auto) 40.3% (14-46) Monocytes (%) (Auto) 10.0% (4-12) Eosinophils (%) (Auto) 2.3% (0-5) Basophils (%) (Auto) 0.4% (0-3) Sodium Level 139mEq/L (134-144) Potassium Level 3.6mEq/L (3.5-5.2) Chloride Level 104mEq/L (97-108) Carbon Dioxide Level 22mmol/L (18-29) Blood Urea Nitrogen 9mg/dL (6-20) Creatinine 0.56mg/dL (0.57-1.00) Estimat Glomerular Filtration Rate 175mL/min (>59) Glucose Level 132mg/dL (60-99) Calcium Level 8.2mg/dL (8.5-10.1) Magnesium Level 2.1mg/dL (1.6-2.6) Total Bilirubin 0.8mg/dL (0.0-1.2) Aspartate Amino Transf (AST/SGOT) 14U/L (0-50) Alanine Aminotransferase (ALT/SGPT) 9U/L (0-32) Alkaline Phosphatase 39U/L (25-150) Total Protein 6.1g/dL (6.4-8.4) Albumin 3.6g/dL (3.4-5.0) Hold Schuster Top Tube Received (Received) Discharge Medications Discharge Medications ([Pepcid]) Unknown Dose PO DAILY (Reported) ([Humalog]) 0.825 UNITS SUBQ Hourly (Reported) Followup Plan Disposition: Home Discharge Diet: No restrictions Discharge Activity: No restrictions Follow-up Provider: Michelle Anderson MD Follow-up with PCP in: 2 weeks Time spent 35 minutes Danie Pelaez MD Oct 26, 2016 16:53
--- NOTE | 2016-10-26 17:49 | CONS ---
[address] [address] CONSULTATION REPORT PATIENT: BO REYES : 1980 MR#: [id number] ADMIT: 10/26/2016 JOB ID: [id number] DATE OF SERVICE: 10/26/2016 PULMONARY CRITICAL CARE CONSULTATION: REQUESTING CLINICIAN: Danie Pelaez MD REASON FOR CONSULTATION: Exertional hypoxemia with chest pain and palpitations. HISTORY OF ILLNESS: The patient is a pleasant 38-year-old white female with a significant history of type 1 diabetes treated with insulin pump who has felt progressive exertional dyspnea with hypoxemia, chest pain, and palpitations over the last week. Recently she was found to have an upper molar eroding into one of her maxillary sinuses. This was treated with an outpatient surgery where the tooth was extracted and the sinus mucosal defect repaired. Reportedly this was complicated by an infection for which she ultimately has received three different courses of oral antibiotics. Beginning approximately two weeks ago she began to be more short of breath to where ultimately she was dyspneic while talking. She also began to have palpitations which worsen with activity and prevent her from engaging in her usual activities. She has had subjective low-grade fevers to 99.2. She was seen for these complaints at an outside facility. Staff at that facility reported that she was hypoxemic with exertion, although she had normal O2 saturations at rest on room air. A CT pulmonary angiogram was performed with no evidence whatsoever of pulmonary thromboembolism. An echocardiogram was requested but because it was unable to be obtained at [facility] where she was admitted originally she was transferred to [facility] and pulmonary critical care consultation was requested. Because the objective abnormality prompting the consultation was normal oxygen saturation at rest of 98% to 100% followed by O2 desaturation into the 70% range with mild exertion on level ground in a 38-year-old woman, I was deeply skeptical of the validity of the data given that only a severe diffusion block was a plausible explanation for this pattern of hypoxemia. The respiratory therapist and I saw the patient together and walked with her for three consecutive laps around the CCU, 400 feet each time. She was under continuous pulse oximetry during this. Her oxygen saturation at rest on room air at the beginning of the ambulation was 100%. After each lap around the CCU we briefly paused and looked at her oxygenation and it remained 100% on room air. Her affect was somewhat unusual during the procedure, with poor eye contact and somewhat flattened emotions. At the end of walking with her in the vences and observing perfectly normal oxygenation, we returned to her room and I reassured her that based on my review of her chest x-ray, CAT scan, and the results of this simple exercise oximetry, that I did not think she had any pulmonary pathology whatsoever. Apparently Dr. Pelaez has subsequently met with the patient, discussed our findings, and she has affirmed some emotional stress which would explain the somatization disorder that is the likely explanation here. PAST MEDICAL HISTORY: Type 1 diabetes mellitus. PAST SURGICAL HISTORY: 1. Molar extraction and repair of maxillary sinus mucosal defect. 2. Thyroglossal duct surgery. FAMILY HISTORY: Father with ischemic heart disease, age 50. Brother with diabetes and hypertension. Grandmother with heart disease. SOCIAL HISTORY: She is a teacher. She denies alcohol or substance abuse. She is a never smoker. PHYSICAL EXAMINATION: The patient is not examined. IMPRESSION: Somatization disorder. Normal oxygenation at rest and with exercise. Pulmonary critical care will not continue to follow the patient. Seek alternative nonpulmonary explanations for her reported subjective symptoms. SANCHEZ
--- NOTE | 2016-10-26 18:09 | NUR ---
Social Work Note: Brief Assessment Data& Assessment: EMR reviewed. Payton Stevens is a 36 year old female admitted on 10/26/2016 for hypoxia. [facility] and sees Shorty Chavira MD for primary care. Per pt is medically ready to discharge home via POV. No MD orders identified. Pt independent in her room and with self care. SW met with pt at bedside to confirm discharge plan and assess for any unmet needs. Pt confirmed plan to discharge home with her family in [place] where she is independent at baseline with all ADL's. Pt transporting her home. Pt denies any needs. No other discharge needs identified. Plan: Per pt is medically ready to discharge home via POV. Pt denies any needs. No other discharge needs identified. ALETHEA Page
--- NOTE | 2016-10-26 18:42 | NUR ---
Discharge note Tele and IV SL removed intact. Patient given discharge instructions, med rec, info on hypoxia. No new prescriptions. All questions answered. Patient amb to lobby to wait for family to pick out hand.
== END 2016-10-26 21:09 | disposition home or self-care (01) ==
LOC: PCC 10-26 01:23 → INTOOBSV 10-26 01:23
PROVIDERS: ADMIT Internal Medicine; ATTEND Hospitalist
DX: J96.01 Acute respiratory failure with hypoxia (principal); E10.649 Type 1 diabetes mellitus with hypoglycemia without coma; D64.9 Anemia, unspecified; Z96.41 Presence of insulin pump (external) (internal); Z79.4 Long term (current) use of insulin
CPT/HCPCS: 36415; 80053; 83735; 85025; 87040; G0378; G0379; J1644